=== PATIENT | female | born 1990 | race Caucasian/White ===

== ENCOUNTER 2019-02-01 18:37 | Outpatient (CLI) | payer OTHER ==
[~2019-02-01] VITALS: Ht 160 cm; Wt 92.3 kg
[~2019-02-01 18:37] MED LIST: PRENAT PO
[2019-02-01 18:57] VITALS: Ht 160 cm; Wt 92.3 kg
[2019-02-01 18:58] VITALS: BP 102/65; PULSE 86; RESP 20
--- NOTE | 2019-02-01 20:34 | PN ---
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 , in the morning feels better and in the afternoon symptoms gets worse Hx of PTB at 34w Objective Vital Signs Date Temp Pulse Resp B/P (MAP) Pulse Ox O2 O2 Flow FiO2 Time Delivery Rate 02/01/19 97.7 86 20 102/65 Room Air 18:58 (77) Heart Rate Comments CAT I tracing Contractions: 6-10 Minutes Apart Exam abdomen soft no tenderness Results/Medications Results 24 hrs Laboratory Tests Test 02/01/19 18:45 Urine Color YELLOW Urine Clarity SLIGHTLY CLOUDY A Urine pH 6.0 Urine Specific [place] 1.006 Urine Ketones NEGATIVE Urine Nitrite POSITIVE A Urine Bilirubin NEGATIVE Urine Urobilinogen NEGATIVE Urine Leukocyte Esterase 2+ H Urine Microscopic RBC 0 Urine Microscopic WBC 7 H Urine Squamous Epithelial Cells FEW Urine Amorphous Crystals FEW A Urine Bacteria MODERATE Urine Hemoglobin NEGATIVE Urine Glucose NEGATIVE Urine Total Protein NEGATIVE Imaging Results BPP 8/8 TOVA 19.8 EFW 1861, 54% CVL 3.2cm Disposition: Discharge Assessment/Plan A IUP 31w3d lifament pain P discharge home with advise of cutting down the working hours RTH with routine labor instructions RUPINDER OMALLEY MD Feb 01, 2019 20:34
--- NOTE | 2019-02-02 06:04 | TRIAGE ---
OB Triage Datetime Report Generated by CPN: 02/02/2019 06:03 Datetime: 02/01/2019 20:29 Stage of : OB Triage Quality: Mild Pattern: Normal: <= 5 Contractions in 10 Minutes Resting Tone [place]: Relaxed Heart Rate FHR Baseline Rate: 135 FHR Baseline Changes: No Baseline Change Variability: Moderate 6-25 bpm Accelerations: 15X15 Decelerations: None Category: Category I Datetime: 02/01/2019 19:43 Labor Evaluation Monitor Mode: External Quality: Mild Resting Tone [place]: Relaxed Heart Rate FHR Baseline Rate: 140 Monitor Mode: External US Datetime: 02/01/2019 19:10 Stage of : OB Triage Labor Evaluation Monitor Mode: External Quality: Mild Pattern: Normal: <= 5 Contractions in 10 Minutes Resting Tone [place]: Relaxed Heart Rate FHR Baseline Rate: 130 Monitor Mode: External US FHR Baseline Changes: No Baseline Change Variability: Moderate 6-25 bpm Accelerations: 15X15 Decelerations: None Category: Category I Pain Assessment Pain Scale: 3 Pain Presence: Intermittent Datetime: 02/01/2019 18:45 Assessment Type: Triage Maternal Assessment Level of Consciousness: Fully Conscious DTR's/Clonus: DTRs 2+; No Clonus Headache: Denies Blurred Vision: No Respiratory Effort: Unlabored; Regular Rhythm; Equal Expansion Breath Sounds, Left: Clear and Equal Breath Sounds, Right: Clear and Equal Nausea/Vomiting: Denies RUQ Epigastric Pain: Denies Lower Extremities Edema: None Degree: None Upper Extremities Edema: None Degree: None Facial Edema: None Fall Risk Assessment History of Falling: (0) No Secondary Diagnosis: (0) No Ambulatory Aid: (0) Bedrest/Nurse Assist IV Therapy: (0) No Gait: (0) Normal/Bedrest/Immobile Mental Status: (0) Oriented to Own Ability Fall Score: 0 Fall Risk Score Definition: No Risk: No action required Datetime: 02/01/2019 18:32 Time of Arrival: 02/01/2019 18:32 EGA: 31.3 Arrived By: Ambulatory Arrived From: Home Chief Complaint: L1 Movement: Present Rupture of Membranes: Denies Vaginal Discharge: Present Recent Sexual Intercouse: Denies Abdominal Trauma: Not Applicable Patient Complaints: Back Pain Additional Patient Complaints: Hx PTL w/ 1 stillbirth and 1 34 wk ptd Time Provider Notified: 02/01/2019 19:10 Provider Notified: Dr Robles Initial Plan: UA, CBC, BPP,CVL
== END 2019-02-01 20:43 | disposition home or self-care (01) ==
LOC: OBT 18:37 → L-D 18:38 → OBT 20:43
PROVIDERS: ATTEND Obstetrics & Gynecology
DX: O26.893 Other specified pregnancy related conditions, third trimester (principal); Z3A.31 31 weeks gestation of pregnancy; R10.2 Pelvic and perineal pain
CPT/HCPCS: 76815; 76817; 76818; 81001; 87086; Z7610; G0463

== ENCOUNTER 2019-02-10 15:18 | Inpatient (IN) | payer OTHER ==
[~2019-02-10] VITALS: Ht 160 cm; Wt 91.8 kg
--- NOTE | 2019-02-10 16:55 | HP ---
Date/Time of Note Date/Time of Note DATE: 02/10/19 TIME: 16:50 OB - History Hx of Present Free Text/Dictation Patient is a 28-year-old 3 para 2 at 33 weeks of gestation with estimated date of delivery March 31, 2019 Patient presents with chief complaint of flulike symptoms. She has a fever of 100.3 Patient reports movement, denies any vaginal bleeding or leaking fluid Patient obstetrical history significant for history of delivery at 34 weeks of gestation and history of IUFD at 28 weeks of gestation with severe preeclampsia Estimated Due Date: March 31, 2019 : 3 Para: 2 Care: Good Care Obstetrical Complications: None Medical Complications: Other (Flu-like symptoms) Past Family/Social History * Past Medical, Surgical, Family and Obstetric Histories reviewed from chart. OB Admission Exam Physical Exam HEENT: WNL Heart: Rhythm Normal Lungs: Clear, Equal Abdomen: WNL Extremities: Normal Reflexes: Normal Membranes: Intact Heart Rate: 140's Accelerations: Accelerations Present Decelerations: No Decelerations Varibility: Moderate Contractions on Admission: 6-10 Minutes Apart Intensity: Mild Last 72 hours Lab Results Urine Results - 72 Hrs Test 02/10/19 16:50 Urine Color RIGOBERTO (YELLOW) Urine Clarity SLIGHTLY CLOUDY (CLEAR) Urine pH 7.0 (5.0-9.0) Urine Specific [place] 1.017 (1.003-1.030) Urine Ketones 1+ mg/dL (NEGATIVE) H Urine Nitrite NEGATIVE mg/dL (NEGATIVE) Urine Bilirubin NEGATIVE mg/dL (NEGATIVE) Urine Urobilinogen 2+ mg/dL (NEGATIVE) H Urine Leukocyte Esterase 1+ [place]/ul (NEGATIVE) H Urine Microscopic RBC 19 /HPF (0-5) H Urine Microscopic WBC 10 /HPF (0-5) H Urine Squamous Epithelial Cells MODERATE /HPF (FEW) Urine Bacteria FEW /HPF (NONE SEEN) A Urine Mucus FEW /HPF (NONE SEEN) A Urine Hemoglobin 1+ mg/dL (NEGATIVE) H Urine Glucose NEGATIVE mg/dL (NEGATIVE) Urine Total Protein 1+ mg/dl (NEGATIVE) H Hematology - 72 Hrs Test 02/10/19 16:50 Hematocrit 32.4 % (37.0-47.0) L Hemoglobin 10.5 g/dl (12.0-16.0) L Mean Corpuscular Hemoglobin 28.8 pg (29.0-33.0) L Mean Corpuscular Hemoglobin Concent 32.4 g/dl (32.0-37.0) Mean Corpuscular Volume 88.8 fl (82.0-101.0) Mean Platelet Volume 11.2 fl (7.4-10.4) H Platelet Count 180 10^3/UL (140-415) Red Blood Count 3.65 10^6/ul (4.20-5.40) L Red Cell Distribution Width 13.7 % (11.5-14.5) White Blood Count 8.7 10^3/ul (4.8-10.8) # Chemistry Test 02/10/19 16:50 Sodium Level 135 mmol/L (135-144) Potassium Level 4.2 mmol/L (3.5-5.1) Chloride Level 106 mmol/L (97-110) Carbon Dioxide Level 22 mmol/L (21-31) Anion Gap 7 (5-13) Blood Urea Nitrogen 4 mg/dl (7-20) L Creatinine 0.56 mg/dl (0.44-1.00) Est Glomerular Filtrat Rate mL/min > 60 mL/min (>60) Glucose Level 89 mg/dl (70-220) Calcium Level 8.5 mg/dl (8.4-10.2) Total Bilirubin 1.2 mg/dl (0.2-1.3) Direct Bilirubin 0.00 mg/dl (0.00-0.20) Indirect Bilirubin 1.2 mg/dl (0-1.1) H Aspartate Amino Transf (AST/SGOT) 12 IU/L (15-46) L Alanine Aminotransferase (ALT/SGPT) 12 IU/L (13-69) L Alkaline Phosphatase 71 IU/L (42-121) Total Protein 6.2 g/dl (6.1-8.1) Albumin 3.1 g/dl (3.3-4.9) L Globulin 3.10 g/dl (1.3-3.2) Albumin/Globulin Ratio 1.00 PROCEDURE: Ultrasound Biophysical profile with amniotic fluid index with transvaginal CLINICAL INDICATION: Flu-like symptoms TECHNIQUE: Color and mayo-scale ultrasound images of an intrauterine gestation were obtained. COMPARISON: US PELVIS 02/01/2019 FINDINGS: A single live intrauterine gestation is identified in cephalic position with an estimated heart rate of 154 beats per minute. The placenta is located anteriorly. There is no evidence of placental abruption. TOVA is 17.75 cm. The length of the cervix equals 3.16 cm on transvaginal ultrasound. movement 2/2. tone 2/2. breathing movement 2/2. Qualitative AFV 2/2 Total biophysical profile 06/21 IMPRESSION: 06/21 biophysical profile. TOVA is 17.75 cm. RPTAT: HJES .Woody Oropeza MD, MD Date Time Electronically viewed and signed by .Woody Oropeza MD, MD on 02/10/2019 17:58 .S/ CC: IMAN GRAF MD [id number] OB Assessment/Plan Reason for admission: other (Flulike symptoms) Other plan: Admit to antepartum IV fluids, labs, urine culture, flu swabs Tamiflu 75 mg p.o. twice daily for 5 days IV ABX Betamethasone for lung maturity Perinatology consultation IMAN GRAF MD Feb 10, 2019 16:55
[2019-02-10] MEDS: LACTATED RINGER'S 1,000 ML IV SCH ×2 (16:56→20:19)
[2019-02-10] MEDS: ACETAMINOPHEN 325 MG TAB PO PRN ×2 (16:59→22:18)
--- NOTE | 2019-02-10 17:43 | TRIAGE ---
OB Triage Datetime Report Generated by CPN: 02/10/2019 17:43 Datetime: 02/10/2019 15:41 Time of Arrival: 02/10/2019 14:13 EGA: 33.0 Arrived By: Ambulatory Arrived From: Home Chief Complaint: flu like symptoms Movement: Present Rupture of Membranes: Denies Vaginal Bleeding: None Vaginal Discharge: Denies Recent Sexual Intercouse: Denies Abdominal Trauma: Not Applicable Patient Complaints: Other Provider Notified: dr rahman Initial Plan: efm,call dr rahman Datetime: 02/10/2019 15:40 Maternal Assessment Level of Consciousness: Fully Conscious DTR's/Clonus: DTRs 2+; No Clonus Headache: Denies Blurred Vision: No Respiratory Effort: Unlabored; Regular Rhythm; Equal Expansion Breath Sounds, Left: Clear and Equal Breath Sounds, Right: Clear and Equal Nausea/Vomiting: Denies RUQ Epigastric Pain: Denies Facial Edema: None Temperature Route: Axillary Fall Risk Assessment History of Falling: (0) No Secondary Diagnosis: (0) No Ambulatory Aid: (0) Bedrest/Nurse Assist IV Therapy: (0) No Gait: (0) Normal/Bedrest/Immobile Mental Status: (0) Oriented to Own Ability Fall Score: 0 Fall Risk Score Definition: No Risk: No action required Datetime: 02/10/2019 15:38 Maternal Assessment Level of Consciousness: Fully Conscious DTR's/Clonus: DTRs 2+ Headache: Denies Blurred Vision: No Nausea/Vomiting: Denies RUQ Epigastric Pain: Denies Facial Edema: None Labor Evaluation Frequency: x1 Monitor Mode: External Quality: Mild Pattern: Normal: <= 5 Contractions in 10 Minutes Resting Tone [place]: Relaxed Heart Rate FHR Baseline Rate: 155 Monitor Mode: External US FHR Baseline Changes: No Baseline Change Variability: Moderate 6-25 bpm Accelerations: 15X15 Decelerations: None Category: Category I Pain Assessment Pain Scale: 6 Pain Presence: Constant Pain Type: Ache Pain Goal: 3 Vaginal Exam Membrane Status: Intact Datetime: 02/01/2019 18:45 Fall Score: 0 Fall Risk Score Definition: No Risk: No action required Datetime: 02/01/2019 18:32 EGA: 31.5
[2019-02-10 19:09] VITALS: Ht 160 cm; Wt 91.8 kg
[2019-02-10] MEDS ORDERED: AL HYDROX/MG HYDROX/SIMETH 30 ML CUP PO PRN (20:00)
[2019-02-10] MEDS ORDERED: OSELTAMIVIR 75 MG CAP PO SCH (21:00)
[2019-02-10] MEDS ORDERED: CEFAZOLIN 2 GM/50 ML (PMX) 50 ML IVPB SCH (22:00)
[2019-02-10] MEDS: CEFAZOLIN 2 GM/50 ML (PMX) 50 ML IVPB SCH (22:19)
[2019-02-10] MEDS: BETAMET NA PHOS/AC(6 MG/ML) 2 ML INJ SYG IM SCH (23:19)
[2019-02-11] MEDS: CEFAZOLIN 2 GM/50 ML (PMX) 50 ML IVPB SCH ×3 (05:43→22:39)
[2019-02-11] MEDS: ACETAMINOPHEN 325 MG TAB PO PRN ×3 (06:23→19:36)
[2019-02-11] MEDS: LACTATED RINGER'S 1,000 ML IV SCH ×3 (06:44→22:39)
[2019-02-11] MEDS ORDERED: PRENATAL VITAMIN PO SCH (09:00)
[2019-02-11] MEDS ORDERED: DOCUSATE SODIUM 100 MG CAP PO SCH (09:00)
--- NOTE | 2019-02-11 11:12 | QN ---
Documentation Comment HD #1 with an IUP at 33w 1d. H/o stillbirth at 28 weeks and PTD at 34 weeks . Pt reports a h/o frequent UTI's. Has had pyelo before 2x always when . Pt feeling a little better but still has a BENAVIDEZ and a backache. Pt on Ancef. Urine cx pending. Flu swabs negative. No CVAT NST: No UC's seen. Baby is reactive and w/o decels. P: Continue care. Hopefully will plan d/c for tomorrow when have the urine cx results and pt is feeling much better. As not sure of the etiology of her illness and as she has a less than stellar OB history will err on the side of caution and plan d/c when she is feeling much better, not just a little bit. YAMILKA MARIE MD Feb 11, 2019 11:12
[2019-02-11] MEDS: BETAMET NA PHOS/AC(6 MG/ML) 2 ML INJ SYG IM SCH (22:40)
[2019-02-12] MEDS: CEFAZOLIN 2 GM/50 ML (PMX) 50 ML IVPB SCH (06:37)
[2019-02-12] MEDS: LACTATED RINGER'S 1,000 ML IV SCH (06:37)
--- NOTE | 2019-02-12 08:24 | DS ---
Date/Time of Note Date/Time of Note DATE: 02/12/19 TIME: 08:23 Discharge Summary Admission/Discharge Info Admit Date/Time Feb 10, 2019 at 16:00 Discharge Date/Time Discharge Diagnosis UTI Patient Condition: Stable Hospital Course UNREMARKABLE Home Meds Reported Medications Multivit/Min/Fol Ac/Iron/Pren* ( S*) 1 Tab Tab, 1 TAB PO DAILY, TAB 10/22/15 Primary Care Provider Care Physician No Primary MARTITA العراقي MD Feb 12, 2019 08:24
== END 2019-02-12 11:50 | disposition home or self-care (01) | DRG 833 ==
LOC: OBT 15:18 → L-D 15:18 → OBT 16:00 → L-D 16:00 → UNDOADMIN 16:22 → L-D 16:22 → PP1 23:46
PROVIDERS: ADMIT Obstetrics & Gynecology; ATTEND Obstetrics & Gynecology
DX: O26.93 Pregnancy related conditions, unspecified, third trimester (principal); Z3A.33 33 weeks gestation of pregnancy; R50.9 Fever, unspecified; R51 Headache; M54.9 Dorsalgia, unspecified
CPT/HCPCS: 76817; 76818; 80053; 81001; 85025; 87086; 87400; G0463; J0690; J0702; J7120

== ENCOUNTER 2019-02-27 16:51 | Outpatient (CLI) | payer OTHER ==
[~2019-02-27] VITALS: Ht 160 cm; Wt 91.2 kg
[2019-02-27 17:45] VITALS: Ht 160 cm; Wt 91.2 kg
[2019-02-27 17:46] VITALS: BP 114/60; PULSE 109
[2019-02-27] MEDS ORDERED: CEPH500C PO (17:47)
[2019-02-27] MEDS ORDERED: TERBUTALINE 1 MG/ML INJ SC ONE (19:00)
[2019-02-27] MEDS ORDERED: LACTATED RINGER'S 1,000 ML IV SCH (19:00)
--- NOTE | 2019-02-27 23:04 | PN ---
Triage Information Date/Time Reason for visit: Uterine contractions Weeks of Gestation 35 weeks /Para Diabetes: none Hypertention: none Objective Vital Signs Date Temp Pulse Resp B/P (MAP) Pulse Ox O2 O2 Flow FiO2 Time Delivery Rate 02/27/19 98.3 109 114/60 17:46 (78) Heart Rate: 120's Heart Rate Comments Reactive Exam Cervix closed Results/Medications Results 24 hrs Laboratory Tests Test 02/27/19 17:05 02/27/19 21:40 Urine Color RIGOBERTO Urine Clarity CLOUDY A Urine pH 5.0 Urine Specific [place] 1.027 Urine Ketones TRACE A Urine Nitrite NEGATIVE Urine Bilirubin NEGATIVE Urine Urobilinogen 2+ H Urine Leukocyte Esterase NEGATIVE Urine Microscopic RBC 5 Urine Microscopic WBC 19 H Urine Squamous Epithelial Cells MODERATE Urine Bacteria FEW A Urine Mucus MANY A Urine Hemoglobin NEGATIVE Urine Glucose NEGATIVE Urine Total Protein NEGATIVE Membranes Rupture NEGATIVE Medications Current Medications Lactated Ringer's 1,000 ml @ 125 mls/hr Q8H IV Last administered on 02/27/19at 19:14; Admin Dose 125 MLS/HR; Start 02/27/19 at 19:00 Disposition: Discharge Assessment/Plan Follow up in clinic this week ELI BARNES MD Feb 27, 2019 23:04
--- NOTE | 2019-02-27 23:21 | TRIAGE ---
OB Triage Datetime Report Generated by CPN: 02/27/2019 23:21 Datetime: 02/27/2019 21:45 Vaginal Exam Dilatation (cms): 0.5 Effacement (%): 20 Station: -4 Exam By: [email or web address] Vaginal Bleeding: None Cervix, Consistency: Moderate Cervix, Position: Midposition Presentation 'A': Unable to Assess Lie 'A': Unable to Assess Datetime: 02/27/2019 20:30 Heart Rate FHR Baseline Rate: 150 FHR Baseline Changes: No Baseline Change Variability: Moderate 6-25 bpm Datetime: 02/27/2019 20:25 Pain Assessment Pain Scale: 4 Pain Assessment Comments: PATIENT STATES SHE NO LONGER FEELS ABD CRAMPING Datetime: 02/27/2019 20:00 Monitor Mode: External Pattern: Normal: <= 5 Contractions in 10 Minutes Contraction Comments: HIGH FREQUENCY, LOW AMPLITUDE Heart Rate FHR Baseline Rate: 135 Monitor Mode: External US FHR Baseline Changes: No Baseline Change Variability: Moderate 6-25 bpm Accelerations: 15X15 Datetime: 02/27/2019 18:36 Labor Evaluation Frequency: 8-10 Monitor Mode: External Duration (sec)2399: 30-60 Quality: Mild Pattern: Normal: <= 5 Contractions in 10 Minutes Resting Tone [place]: Relaxed Heart Rate FHR Baseline Rate: 125 Monitor Mode: External US Variability: Moderate 6-25 bpm Accelerations: 10X10 Decelerations: None Category: Category I Pain Assessment Pain Scale: 6 Pain Presence: Intermittent Pain Type: Cramping Pain Location: Abdomen Pain Goal: 3 Pain Relief Measures: Comfort Measures Datetime: 02/27/2019 18:32 Stage of : OB Triage Datetime: 02/27/2019 17:41 Stage of : OB Triage Assessment Type: Triage Maternal Assessment Level of Consciousness: Fully Conscious DTR's/Clonus: DTRs 2+; No Clonus Headache: Denies Blurred Vision: No Respiratory Effort: Unlabored; Regular Rhythm; Equal Expansion Breath Sounds, Left: Clear and Equal Breath Sounds, Right: Clear and Equal Nausea/Vomiting: Denies RUQ Epigastric Pain: Denies Facial Edema: None Temperature Route: Axillary Fall Risk Assessment History of Falling: (0) No Secondary Diagnosis: (0) No Ambulatory Aid: (0) Bedrest/Nurse Assist IV Therapy: (0) No Gait: (0) Normal/Bedrest/Immobile Mental Status: (0) Oriented to Own Ability Fall Score: 0 Fall Risk Score Definition: No Risk: No action required Labor Evaluation Frequency: X2 Monitor Mode: External Duration (sec)2399: 40 Quality: Mild Pattern: Normal: <= 5 Contractions in 10 Minutes Resting Tone [place]: Relaxed Heart Rate FHR Baseline Rate: 135 Monitor Mode: External US Variability: Moderate 6-25 bpm Accelerations: 10X10 Decelerations: None Category: Category I Pain Assessment Pain Scale: 6 Pain Presence: Intermittent Pain Type: Cramping Pain Location: Perineum Pain Goal: 3 Pain Relief Measures: Comfort Measures Datetime: 02/27/2019 17:40 Time of Arrival: 02/27/2019 16:44 EGA: 35.3 Arrived By: Ambulatory Arrived From: Home Chief Complaint: C/O CRAMPING, DENIES BLEEDING, OR LEAKING Movement: Present Contractions: Occasional Rupture of Membranes: Denies Vaginal Bleeding: None Vaginal Discharge: Denies Recent Sexual Intercouse: Denies Abdominal Trauma: Not Applicable Patient Complaints: Cramping Time Provider Notified: 02/27/2019 18:32 Provider Notified: MALCOM Initial Plan: MONITOR, BPP Datetime: 02/12/2019 08:20 Stage of : Antepartum Datetime: 02/12/2019 08:19 Heart Rate FHR Baseline Rate: 125 Monitor Mode: External US Variability: Moderate 6-25 bpm Accelerations: 15X15 Decelerations: None Datetime: 02/12/2019 07:12 Assessment Type: Ongoing Assessment Maternal Assessment Level of Consciousness: Fully Conscious Maternal Assessment Level of Consciousness: Fully Conscious DTR's/Clonus: DTRs 2+; No Clonus Headache: Denies Headache: Denies Blurred Vision: No Blurred Vision: No Respiratory Effort: Unlabored; Regular Rhythm; Equal Expansion Breath Sounds, Left: Clear and Equal Breath Sounds, Right: Clear and Equal Nausea/Vomiting: Denies Nausea/Vomiting: Denies RUQ Epigastric Pain: Denies RUQ Epigastric Pain: Denies Lower Extremities Edema: None Degree: None Upper Extremities Edema: None Degree: None Facial Edema: None Fall Risk Assessment History of Falling: (0) No Secondary Diagnosis: (0) No Ambulatory Aid: (0) Bedrest/Nurse Assist IV Therapy: (20) Yes Gait: (0) Normal/Bedrest/Immobile Mental Status: (0) Oriented to Own Ability Fall Score: 20 Fall Risk Score Definition: No Risk: No action required Pain Presence: Chronic Pain Type: Dull Pain Location: Head Pain Relief Measures: Comfort Measures Pain Assessment Comments: pt. states she has a constant h.a. pt. does not appear in distress at thi s time. ice pack given. pt. denies need for pain meds. at this time Datetime: 02/12/2019 07:11 Monitor Mode: External Resting Tone [place]: Relaxed Datetime: 02/12/2019 06:39 Temperature Route: Oral Pain Presence: None/Denies Datetime: 02/12/2019 06:10 Labor Evaluation Frequency: 0 Monitor Mode: External Duration (sec)2399: denies Resting Tone [place]: Relaxed Heart Rate FHR Baseline Rate: 130 Monitor Mode: External US Variability: Moderate 6-25 bpm Accelerations: 15X15 Decelerations: Variable Category: Category II Pain Presence: None/Denies Datetime: 02/12/2019 05:10 Labor Evaluation Frequency: 0 Monitor Mode: External Duration (sec)2399: denies Resting Tone [place]: Relaxed Heart Rate FHR Baseline Rate: 130 Monitor Mode: External US Variability: Moderate 6-25 bpm Accelerations: 15X15 Decelerations: Variable Category: Category II Comments: some periods of minimal variability noted. Pain Presence: None/Denies Datetime: 02/12/2019 04:10 Labor Evaluation Frequency: 0 Monitor Mode: External Resting Tone [place]: Relaxed Heart Rate FHR Baseline Rate: 125 Monitor Mode: External US Variability: Moderate 6-25 bpm Accelerations: 15X15 Decelerations: None Category: Category I Pain Presence: None/Denies Datetime: 02/12/2019 04:01 Comments: maternal heart rate was detected. Datetime: 02/12/2019 03:10 Labor Evaluation Frequency: 0 Monitor Mode: External Resting Tone [place]: Relaxed Heart Rate FHR Baseline Rate: 125 Monitor Mode: External US Variability: Moderate 6-25 bpm Accelerations: 15X15 Decelerations: None Category: Category I Datetime: 02/12/2019 02:16 Comments: MATERNAL HEART RATE DETECTED FOUNDED PT TURNED ON HER LEFT SIDE. Datetime: 02/12/2019 02:10 Labor Evaluation Frequency: 0 Monitor Mode: External Duration (sec)2399: DENIES Resting Tone [place]: Relaxed Heart Rate FHR Baseline Rate: 135 Monitor Mode: External US Variability: Moderate 6-25 bpm Accelerations: 15X15 Decelerations: None Category: Category I Pain Presence: None/Denies Datetime: 02/12/2019 01:13 Comments: MATERNAL HEART RATE DETECTED. Datetime: 02/12/2019 01:10 Labor Evaluation Frequency: 0 Monitor Mode: External Duration (sec)2399: DENIES Resting Tone [place]: Relaxed Heart Rate FHR Baseline Rate: 130 Monitor Mode: External US Variability: Moderate 6-25 bpm Accelerations: 15X15 Decelerations: None Category: Category I Pain Presence: None/Denies Datetime: 02/12/2019 00:10 Labor Evaluation Frequency: 0 Monitor Mode: External Resting Tone [place]: Relaxed Heart Rate FHR Baseline Rate: 130 Monitor Mode: External US Variability: Moderate 6-25 bpm Accelerations: 15X15 Decelerations: Variable Category: Category II Pain Presence: None/Denies Datetime: 02/11/2019 23:08 Labor Evaluation Frequency: 0 Monitor Mode: External Duration (sec)2399: denies Resting Tone [place]: Relaxed Heart Rate FHR Baseline Rate: 135 Monitor Mode: External US Variability: Moderate 6-25 bpm Accelerations: 15X15 Decelerations: None Category: Category I Datetime: 02/11/2019 22:00 Labor Evaluation Frequency: 0 Monitor Mode: External Resting Tone [place]: Relaxed Heart Rate FHR Baseline Rate: 145 Monitor Mode: External US Variability: Moderate 6-25 bpm Accelerations: 15X15 Decelerations: None Category: Category I Pain Presence: None/Denies Datetime: 02/11/2019 21:00 Labor Evaluation Frequency: 0 Monitor Mode: External Duration (sec)2399: DENIES Resting Tone [place]: Relaxed Heart Rate FHR Baseline Rate: 145 Comments: LOSS OF CONTACT,PT MOVING SIDE TO SIDE IN BED. Datetime: 02/11/2019 20:45 Pain Assessment Comments: PT STATED TYLENOL HELPED HER WITH BENAVIDEZ,HER BPAIN IS DOWN 2/10 ON A SCALE. WILL KEEP MONITORING. Datetime: 02/11/2019 20:00 Labor Evaluation Frequency: 0 Monitor Mode: External Duration (sec)2399: DENIES Resting Tone [place]: Relaxed Heart Rate FHR Baseline Rate: 135 Monitor Mode: External US Variability: Moderate 6-25 bpm Accelerations: 15X15 Decelerations: None Category: Category I Comments: LOSS OF CONTACT AT TIMES DUE TO MATERNAL MOVEMENTS. Datetime: 02/11/2019 19:25 Stage of : Antepartum Assessment Type: Ongoing Assessment Maternal Assessment Level of Consciousness: Fully Conscious DTR's/Clonus: DTRs 2+; No Clonus Headache: Denies Blurred Vision: No Respiratory Effort: Unlabored; Regular Rhythm; Equal Expansion Breath Sounds, Left: Clear and Equal Breath Sounds, Right: Clear and Equal Nausea/Vomiting: Denies RUQ Epigastric Pain: Denies Lower Extremities Edema: None Degree: None Upper Extremities Edema: None Degree: None Facial Edema: None Temperature Route: Oral Fall Risk Assessment History of Falling: (0) No Secondary Diagnosis: (0) No Ambulatory Aid: (0) Bedrest/Nurse Assist IV Therapy: (0) No Gait: (0) Normal/Bedrest/Immobile Mental Status: (0) Oriented to Own Ability Fall Score: 0 Fall Risk Score Definition: No Risk: No action required Monitor Mode: External Pain Presence: Intermittent Pain Type: Dull; Ache Pain Location: Back; Head Pain Relief Measures: Pain Medication Given; Comfort Measures (Annotations: TYLENOL 650 MG PO GIVEN.) Datetime: 02/11/2019 18:40 Headache: Denies Pain Presence: None/Denies Datetime: 02/11/2019 18:22 Stage of : Antepartum Maternal Assessment Level of Consciousness: Fully Conscious Blurred Vision: No Nausea/Vomiting: Denies RUQ Epigastric Pain: Denies Temperature Route: Oral Datetime: 02/11/2019 18:00 Stage of : Antepartum Maternal Assessment Level of Consciousness: Fully Conscious Headache: Denies Nausea/Vomiting: Denies RUQ Epigastric Pain: Denies Labor Evaluation Frequency: 0/hr Monitor Mode: External Heart Rate FHR Baseline Rate: 130 Monitor Mode: External US Variability: Moderate 6-25 bpm Accelerations: 15X15 Decelerations: None Pain Presence: None/Denies Vaginal Bleeding: None Datetime: 02/11/2019 17:56 Maternal Assessment Level of Consciousness: Fully Conscious Headache: Denies Blurred Vision: No Respiratory Effort: Unlabored Nausea/Vomiting: Denies RUQ Epigastric Pain: Denies Facial Edema: None Pain Presence: None/Denies Datetime: 02/11/2019 17:02 Stage of : Antepartum Maternal Assessment Level of Consciousness: Fully Conscious Headache: Denies Nausea/Vomiting: Denies RUQ Epigastric Pain: Denies Labor Evaluation Frequency: 0/hr Monitor Mode: External Heart Rate FHR Baseline Rate: 130 Monitor Mode: External US Variability: Moderate 6-25 bpm Accelerations: 15X15 Decelerations: None Pain Presence: None/Denies Vaginal Bleeding: None Datetime: 02/11/2019 16:39 Resting Tone [place]: Relaxed Monitor Mode: External US Pain Presence: None/Denies Datetime: 02/11/2019 16:00 Stage of : Antepartum Maternal Assessment Level of Consciousness: Fully Conscious Headache: Denies Nausea/Vomiting: Denies RUQ Epigastric Pain: Denies Labor Evaluation Frequency: 0/hr Monitor Mode: External Heart Rate FHR Baseline Rate: 125 Monitor Mode: External US Variability: Moderate 6-25 bpm Accelerations: 15X15 Decelerations: None Pain Presence: None/Denies Vaginal Bleeding: None Datetime: 02/11/2019 15:04 Stage of : Antepartum Maternal Assessment Level of Consciousness: Fully Conscious Headache: Denies Nausea/Vomiting: Denies RUQ Epigastric Pain: Denies Labor Evaluation Frequency: 0/hr Monitor Mode: External Heart Rate FHR Baseline Rate: 130 Monitor Mode: External US Variability: Moderate 6-25 bpm Decelerations: None Pain Presence: None/Denies Vaginal Bleeding: None Datetime: 02/11/2019 14:05 Stage of : Antepartum Maternal Assessment Level of Consciousness: Fully Conscious Headache: Denies Blurred Vision: No Respiratory Effort: Unlabored Nausea/Vomiting: Denies RUQ Epigastric Pain: Denies Labor Evaluation Frequency: 0/hr Monitor Mode: External Heart Rate FHR Baseline Rate: 130 Monitor Mode: External US Variability: Moderate 6-25 bpm Accelerations: 10X10 Decelerations: None Pain Presence: None/Denies Vaginal Bleeding: None Datetime: 02/11/2019 13:05 Stage of : Antepartum Maternal Assessment Level of Consciousness: Fully Conscious Headache: Generalized Blurred Vision: No Respiratory Effort: Unlabored Nausea/Vomiting: Denies RUQ Epigastric Pain: Denies Labor Evaluation Frequency: 0/hr Monitor Mode: External Heart Rate FHR Baseline Rate: 120 Monitor Mode: External US Variability: Moderate 6-25 bpm Accelerations: 15X15 Pain Presence: None/Denies Vaginal Bleeding: None Datetime: 02/11/2019 11:51 Heart Rate FHR Baseline Rate: 130 Monitor Mode: External US Variability: Moderate 6-25 bpm Accelerations: 10X10 Decelerations: Variable Datetime: 02/11/2019 11:48 Stage of : Antepartum Maternal Assessment Level of Consciousness: Fully Conscious Headache: Generalized Blurred Vision: No Respiratory Effort: Unlabored Nausea/Vomiting: Denies RUQ Epigastric Pain: Denies Temperature Route: Oral Comments: rn unsure if actual variable and not u.s. p/u/ maternal h.r. w/ pt. position change inbed Pain Assessment Pain Scale: 4 Pain Presence: Constant Pain Type: Ache Pain Location: Head Pain Relief Measures: Pain Medication Given; Comfort Measures Pain Assessment Comments: tylenol and ice pack given to pt. per her request. Datetime: 02/11/2019 10:14 Stage of : Antepartum Maternal Assessment Level of Consciousness: Fully Conscious Nausea/Vomiting: Denies RUQ Epigastric Pain: Denies Labor Evaluation Frequency: 0/hr Monitor Mode: External Heart Rate FHR Baseline Rate: 120 Monitor Mode: External US Variability: Moderate 6-25 bpm Accelerations: 15X15 Vaginal Bleeding: None Datetime: 02/11/2019 09:54 Heart Rate FHR Baseline Rate: 120 Monitor Mode: External US Variability: Moderate 6-25 bpm Accelerations: 15X15 Decelerations: None Datetime: 02/11/2019 09:52 Respiratory Effort: Unlabored Pain Presence: None/Denies Datetime: 02/11/2019 09:00 Stage of : Antepartum Maternal Assessment Level of Consciousness: Fully Conscious Headache: Generalized Nausea/Vomiting: Denies RUQ Epigastric Pain: Denies Labor Evaluation Frequency: 0/hr Monitor Mode: External Heart Rate FHR Baseline Rate: 120 Monitor Mode: External US Variability: Moderate 6-25 bpm Accelerations: 15X15 Pain Assessment Pain Scale: 3 Pain Presence: Constant Pain Type: Ache Pain Location: Head Pain Relief Measures: Comfort Measures Membrane Status: Intact Vaginal Bleeding: None Datetime: 02/11/2019 08:37 Maternal Assessment Level of Consciousness: Fully Conscious Headache: Generalized Blurred Vision: No Respiratory Effort: Unlabored Nausea/Vomiting: Denies RUQ Epigastric Pain: Denies Pain Presence: Constant Pain Type: Ache Pain Location: Head Pain Relief Measures: Comfort Measures Datetime: 02/11/2019 08:11 Labor Evaluation Frequency: occassional Monitor Mode: External Duration (sec)2399: 40 Quality: Mild Heart Rate FHR Baseline Rate: 120 Monitor Mode: External US Variability: Moderate 6-25 bpm Accelerations: 15X15 Datetime: 02/11/2019 07:32 Labor Evaluation Frequency: 0 Monitor Mode: External Resting Tone [place]: Relaxed Contraction Comments: pt. denies at this time. pt. states S_S of uti have decreased. 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 rn asked if she informed md when in ob triage of this and she states yes. Heart Rate FHR Baseline Rate: 120 Monitor Mode: External US Variability: Moderate 6-25 bpm Accelerations: 15X15 Decelerations: None Datetime: 02/11/2019 07:22 Assessment Type: Ongoing Assessment Maternal Assessment Level of Consciousness: Fully Conscious Maternal Assessment Level of Consciousness: Fully Conscious DTR's/Clonus: DTRs 2+ Headache: Temporal; Generalized Headache: Generalized Blurred Vision: No Blurred Vision: No Respiratory Effort: Unlabored; Regular Rhythm; Equal Expansion Respiratory Effort: Unlabored Breath Sounds, Left: Clear and Equal Breath Sounds, Left: Clear and Equal Breath Sounds, Right: Clear and Equal Breath Sounds, Right: Clear and Equal Nausea/Vomiting: Denies RUQ Epigastric Pain: Denies RUQ Epigastric Pain: Denies Lower Extremities Edema: Bilateral Lower Extremities Degree: 1+ Upper Extremities Edema: None Degree: None Facial Edema: None Fall Risk Assessment History of Falling: (0) No Secondary Diagnosis: (0) No Ambulatory Aid: (0) Bedrest/Nurse Assist IV Therapy: (20) Yes Gait: (0) Normal/Bedrest/Immobile Mental Status: (0) Oriented to Own Ability Fall Score: 20 Fall Risk Score Definition: No Risk: No action required Monitor Mode: External Resting Tone [place]: Relaxed Pain Assessment Pain Scale: 4 Pain Presence: Constant Pain Type: Sharp Pain Location: Head Pain Relief Measures: Comfort Measures Pain Assessment Comments: pt. was given tylenol by p.mRc obrien for h.a. pt. talking w/ rn during ass essment and talking w/out distress at this time. pt. denies S_S of ptl, as pt. has hx. ptd at 34 week s and 28 weeks fd, pt. also denies S_S of preeclampsia Membrane Status: Intact Vaginal Bleeding: None Datetime: 02/11/2019 07:12 Stage of : Antepartum Temperature Route: Oral Datetime: 02/11/2019 07:10 Stage of : Antepartum Datetime: 02/11/2019 07:00 Labor Evaluation Frequency: none Monitor Mode: External Resting Tone [place]: Relaxed Heart Rate FHR Baseline Rate: 120 Monitor Mode: External US FHR Baseline Changes: No Baseline Change Variability: Moderate 6-25 bpm Accelerations: 15X15 Decelerations: None Category: Category I Datetime: 02/11/2019 06:00 Labor Evaluation Frequency: none Monitor Mode: External Resting Tone [place]: Relaxed Heart Rate FHR Baseline Rate: 120 Monitor Mode: External US FHR Baseline Changes: No Baseline Change Variability: Moderate 6-25 bpm Accelerations: 15X15 Decelerations: None Category: Category I Datetime: 02/11/2019 05:00 Labor Evaluation Frequency: none Monitor Mode: External Resting Tone [place]: Relaxed Heart Rate FHR Baseline Rate: 125 Monitor Mode: External US FHR Baseline Changes: No Baseline Change Variability: Moderate 6-25 bpm Accelerations: 15X15 Decelerations: None Category: Category I Datetime: 02/11/2019 04:16 Stage of : Antepartum Temperature Route: Oral Pain Assessment Pain Scale: 2 Pain Presence: Constant Pain Type: Ache Pain Location: Back Pain Goal: 0 Pain Relief Measures: Comfort Measures Datetime: 02/11/2019 04:00 Labor Evaluation Frequency: none Monitor Mode: External Resting Tone [place]: Relaxed Heart Rate FHR Baseline Rate: 125 Monitor Mode: External US FHR Baseline Changes: No Baseline Change Variability: Moderate 6-25 bpm Decelerations: None Category: Category I Datetime: 02/11/2019 03:20 Comments: loss of contact Datetime: 02/11/2019 03:00 Labor Evaluation Frequency: none Monitor Mode: External Resting Tone [place]: Relaxed Heart Rate FHR Baseline Rate: 130 Monitor Mode: External US FHR Baseline Changes: No Baseline Change Variability: Moderate 6-25 bpm Accelerations: 15X15 Decelerations: None Category: Category I Datetime: 02/11/2019 02:00 Labor Evaluation Frequency: none Monitor Mode: External Resting Tone [place]: Relaxed Heart Rate FHR Baseline Rate: 130 Monitor Mode: External US FHR Baseline Changes: No Baseline Change Variability: Moderate 6-25 bpm Accelerations: 15X15 Decelerations: None Category: Category I Pain Presence: None/Denies Pain Assessment Comments: pt resting without aapparent distress. Datetime: 02/11/2019 01:00 Labor Evaluation Frequency: none Monitor Mode: External Resting Tone [place]: Relaxed Heart Rate FHR Baseline Rate: 135 Monitor Mode: External US FHR Baseline Changes: No Baseline Change Variability: Moderate 6-25 bpm Accelerations: 10X10 Decelerations: None Category: Category I Datetime: 02/11/2019 00:00 Labor Evaluation Frequency: none Monitor Mode: External Resting Tone [place]: Relaxed Heart Rate FHR Baseline Rate: 140 Monitor Mode: External US FHR Baseline Changes: No Baseline Change Variability: Moderate 6-25 bpm Decelerations: None Category: Category I Pain Assessment Pain Scale: 7 Pain Presence: Constant Pain Type: Pressure Pain Location: Back Pain Goal: 0 Pain Assessment Comments: pt c/o lower back pain at 7 out of 10. Advised to drink lots of water. Datetime: 02/10/2019 23:48 Stage of : Antepartum Temperature Route: Oral Pain Assessment Pain Scale: 7 Pain Presence: Constant Pain Type: Ache Pain Location: Back Pain Goal: 7 Pain Relief Measures: Comfort Measures Datetime: 02/10/2019 23:22 Stage of : Antepartum Labor Evaluation Frequency: X1 Monitor Mode: External Duration (sec)2399: 80 Quality: Mild Pattern: Normal: <= 5 Contractions in 10 Minutes Resting Tone [place]: Relaxed Heart Rate FHR Baseline Rate: 145 Monitor Mode: External US Variability: Moderate 6-25 bpm Accelerations: 15X15 Decelerations: None Category: Category I Datetime: 02/10/2019 23:15 Comments: loss contact d/t maternal's activity in bed Datetime: 02/10/2019 22:15 Monitor Mode: External US Datetime: 02/10/2019 22:14 Comments: loss contact d/t maternal's position in bed. EFM reverts to maternal heart rate. Datetime: 02/10/2019 22:05 Monitor Mode: External US Datetime: 02/10/2019 22:04 Monitor Mode: External Contraction Comments: APPLIED Monitor Mode: External US Comments: APPLIED Datetime: 02/10/2019 21:00 Stage of : Antepartum Labor Evaluation Frequency: x0 Monitor Mode: External Duration (sec)2399: x0 Pattern: Normal: <= 5 Contractions in 10 Minutes Resting Tone [place]: Relaxed Heart Rate FHR Baseline Rate: 145 Monitor Mode: External US Variability: Moderate 6-25 bpm Accelerations: 15X15 Decelerations: None Category: Category I Datetime: 02/10/2019 20:00 Stage of : Antepartum Labor Evaluation Frequency: X0 Monitor Mode: External Duration (sec)2399: X0 Pattern: Normal: <= 5 Contractions in 10 Minutes Resting Tone [place]: Relaxed Contraction Comments: MILD IRRITABILITY NOTED Heart Rate FHR Baseline Rate: 145 Monitor Mode: External US Variability: Moderate 6-25 bpm Accelerations: 15X15 Decelerations: None Category: Category I Datetime: 02/10/2019 19:57 Monitor Mode: External US Datetime: 02/10/2019 19:30 Stage of : Antepartum Assessment Type: Ongoing Assessment Maternal Assessment Level of Consciousness: Fully Conscious Headache: Temporal; Generalized Blurred Vision: No Respiratory Effort: Unlabored; Regular Rhythm; Equal Expansion Breath Sounds, Left: Clear and Equal Breath Sounds, Right: Clear and Equal Nausea/Vomiting: Denies RUQ Epigastric Pain: Denies Lower Extremities Edema: Bilateral Lower Extremities Degree: 1+ Upper Extremities Edema: None Degree: None Facial Edema: None Temperature Route: Oral Fall Risk Assessment History of Falling: (0) No Secondary Diagnosis: (0) No Ambulatory Aid: (0) Bedrest/Nurse Assist IV Therapy: (20) Yes Gait: (0) Normal/Bedrest/Immobile Mental Status: (0) Oriented to Own Ability Fall Score: 20 Fall Risk Score Definition: No Risk: No action required Pain Assessment Pain Scale: 4 Pain Presence: Constant Pain Type: Dull; Ache Pain Location: Back; Head Pain Relief Measures: Comfort Measures Pain Assessment Comments: Pt encouraged to increase water intake. Datetime: 02/10/2019 19:00 Labor Evaluation Frequency: occ Monitor Mode: External Duration (sec)2399: 40-50 Quality: Mild Pattern: Normal: <= 5 Contractions in 10 Minutes Resting Tone [place]: Relaxed Heart Rate FHR Baseline Rate: 140 Monitor Mode: External US Variability: Moderate 6-25 bpm Accelerations: 15X15 Decelerations: Variable Category: Category II Comments: appropriate for gestational age Datetime: 02/10/2019 18:34 Stage of : Antepartum Assessment Type: Admission Assessment Vaginal Bleeding: None Maternal Assessment Level of Consciousness: Fully Conscious Headache: Temporal; Generalized Blurred Vision: No Respiratory Effort: Unlabored; Regular Rhythm; Equal Expansion Breath Sounds, Left: Clear and Equal Breath Sounds, Right: Clear and Equal Nausea/Vomiting: Denies RUQ Epigastric Pain: Denies Lower Extremities Edema: Bilateral Lower Extremities Degree: 1+ Upper Extremities Edema: None Degree: None Facial Edema: None Fall Risk Assessment History of Falling: (0) No Secondary Diagnosis: (0) No Ambulatory Aid: (0) Bedrest/Nurse Assist IV Therapy: (20) Yes Gait: (0) Normal/Bedrest/Immobile Mental Status: (0) Oriented to Own Ability Fall Score: 20 Fall Risk Score Definition: No Risk: No action required Labor Evaluation Frequency: none noted at this time Heart Rate FHR Baseline Rate: 145 Variability: Moderate 6-25 bpm Accelerations: 15X15 Decelerations: Variable Category: Category II Pain Assessment Pain Scale: 4 Pain Presence: Intermittent Pain Type: Cramping Pain Location: Abdomen; Back Membrane Status: Intact Datetime: 02/10/2019 16:34 Maternal Assessment Level of Consciousness: Fully Conscious DTR's/Clonus: DTRs 2+ Headache: Denies Blurred Vision: No Nausea/Vomiting: Denies RUQ Epigastric Pain: Denies Facial Edema: None Labor Evaluation Frequency: NONE Pattern: Normal: <= 5 Contractions in 10 Minutes Resting Tone [place]: Relaxed Heart Rate FHR Baseline Rate: 155 Monitor Mode: External US FHR Baseline Changes: No Baseline Change Variability: Moderate 6-25 bpm Accelerations: 10X10 Decelerations: None Category: Category I Pain Assessment Pain Scale: 8 Pain Presence: Constant Pain Type: Ache Pain Location: Other Pain Goal: 3 Membrane Status: Intact Datetime: 02/10/2019 15:55 Maternal Assessment Level of Consciousness: Fully Conscious DTR's/Clonus: DTRs 2+ Headache: Denies Blurred Vision: No Nausea/Vomiting: Denies RUQ Epigastric Pain: Denies Facial Edema: None Labor Evaluation Frequency: NONE Pattern: Normal: <= 5 Contractions in 10 Minutes Resting Tone [place]: Relaxed Heart Rate FHR Baseline Rate: 155 Monitor Mode: External US FHR Baseline Changes: No Baseline Change Variability: Moderate 6-25 bpm Accelerations: 15X15 Decelerations: None Category: Category I Pain Assessment Pain Scale: 8 Pain Presence: Constant Pain Type: Ache Pain Location: Other Pain Goal: 4 Pain Assessment Comments: GENERALIZED BODY ACHES Membrane Status: Intact Datetime: 02/10/2019 15:41 EGA: 33.0 Datetime: 02/10/2019 15:40 Fall Score: 0 Fall Risk Score Definition: No Risk: No action required Datetime: 02/01/2019 18:45 Fall Score: 0 Fall Risk Score Definition: No Risk: No action required Datetime: 02/01/2019 18:32 EGA: 31.5
== END 2019-02-27 23:06 | disposition home or self-care (01) ==
LOC: OBT 16:51 → L-D 16:52 → OBT 23:06
PROVIDERS: ATTEND Obstetrics & Gynecology
DX: O62.9 Abnormality of forces of labor, unspecified (principal); Z3A.35 35 weeks gestation of pregnancy
CPT/HCPCS: 36415; 76818; 81001; 84112; 87086; 96360; 96361; 96372; J3105; J7120; Z7500; G0463

== ENCOUNTER 2019-03-10 13:04 | Outpatient (CLI) | payer OTHER ==
[~2019-03-10] VITALS: Ht 160 cm; Wt 93.0 kg
[2019-03-10 13:24] VITALS: Ht 160 cm; Wt 93.0 kg
[2019-03-10 13:25] VITALS: BP 121/69; PULSE 96; RESP 18
[2019-03-10] MEDS ORDERED: ACETAMINOPHEN 500 MG TAB PO STA (13:57)
--- NOTE | 2019-03-10 18:11 | TRIAGE ---
OB Triage Datetime Report Generated by CPN: 03/10/2019 18:11 Datetime: 03/10/2019 17:50 Maternal Assessment Level of Consciousness: Fully Conscious DTR's/Clonus: DTRs 2+ Headache: Denies Blurred Vision: No Nausea/Vomiting: Denies RUQ Epigastric Pain: Denies Facial Edema: None Labor Evaluation Frequency: IRREG Monitor Mode: External Duration (sec)2399: 60-80 Quality: Mild Pattern: Normal: <= 5 Contractions in 10 Minutes Resting Tone [place]: Relaxed Heart Rate FHR Baseline Rate: 140 Monitor Mode: External US FHR Baseline Changes: No Baseline Change Variability: Moderate 6-25 bpm Accelerations: 15X15 Decelerations: None Category: Category I Pain Assessment Pain Scale: 0 Pain Presence: Intermittent Pain Type: Cramping Pain Location: Abdomen Pain Goal: 0 Membrane Status: Intact Datetime: 03/10/2019 15:54 Maternal Assessment Level of Consciousness: Fully Conscious DTR's/Clonus: DTRs 2+ Headache: Denies Blurred Vision: No Nausea/Vomiting: Denies RUQ Epigastric Pain: Denies Facial Edema: None Labor Evaluation Frequency: 10 Monitor Mode: External Duration (sec)2399: 60-70 Quality: Mild Pattern: Normal: <= 5 Contractions in 10 Minutes Resting Tone [place]: Relaxed Heart Rate FHR Baseline Rate: 130 Monitor Mode: External US FHR Baseline Changes: No Baseline Change Variability: Moderate 6-25 bpm Accelerations: 15X15 Decelerations: None Category: Category I Pain Assessment Pain Scale: 4 Pain Presence: Intermittent Pain Type: Contraction Pain Location: Abdomen Pain Goal: 2 Membrane Status: Intact Datetime: 03/10/2019 13:41 Maternal Assessment Level of Consciousness: Fully Conscious DTR's/Clonus: DTRs 2+ Headache: Denies Blurred Vision: No RUQ Epigastric Pain: Denies Facial Edema: None Labor Evaluation Frequency: occas Monitor Mode: External Duration (sec)2399: 60 Quality: Mild Pattern: Normal: <= 5 Contractions in 10 Minutes Resting Tone [place]: Relaxed Heart Rate FHR Baseline Rate: 130 Monitor Mode: External US FHR Baseline Changes: No Baseline Change Variability: Moderate 6-25 bpm Accelerations: 15X15 Decelerations: None Category: Category I Pain Assessment Pain Scale: 8 Pain Presence: Constant Pain Type: Pressure Pain Location: Abdomen Vaginal Exam Dilatation (cms): 0.5 Station: -3 Exam By: jamar lagos Vaginal Bleeding: None Cervix, Consistency: Soft Cervix, Position: Posterior Datetime: 03/10/2019 13:30 Maternal Assessment Level of Consciousness: Fully Conscious DTR's/Clonus: DTRs 2+; No Clonus Headache: Denies Blurred Vision: No Respiratory Effort: Unlabored; Regular Rhythm; Equal Expansion Breath Sounds, Left: Clear and Equal Breath Sounds, Right: Clear and Equal Nausea/Vomiting: Denies RUQ Epigastric Pain: Denies Facial Edema: None Fall Risk Assessment History of Falling: (0) No Secondary Diagnosis: (0) No Ambulatory Aid: (0) Bedrest/Nurse Assist Gait: (0) Normal/Bedrest/Immobile Mental Status: (0) Oriented to Own Ability Datetime: 03/10/2019 13:09 Time of Arrival: 03/10/2019 13:00 EGA: 37.0 Arrived By: Ambulatory Arrived From: Home Chief Complaint: CRAMPING AND LOWER ABD PRESSURE X 1 WEEK Movement: Present Rupture of Membranes: Denies Vaginal Bleeding: None Vaginal Discharge: Denies Recent Sexual Intercouse: Denies Abdominal Trauma: Not Applicable Provider Notified: dr cummings Initial Plan: EFM,CALL DR العراقي Datetime: 03/10/2019 13:08 Maternal Assessment Level of Consciousness: Fully Conscious DTR's/Clonus: DTRs 2+; No Clonus Headache: Denies Blurred Vision: No Respiratory Effort: Unlabored; Regular Rhythm; Equal Expansion Breath Sounds, Left: Clear and Equal Breath Sounds, Right: Clear and Equal Nausea/Vomiting: Denies RUQ Epigastric Pain: Denies Facial Edema: None Temperature Route: Axillary Fall Risk Assessment History of Falling: (0) No Secondary Diagnosis: (0) No Ambulatory Aid: (0) Bedrest/Nurse Assist IV Therapy: (0) No Gait: (0) Normal/Bedrest/Immobile Mental Status: (0) Oriented to Own Ability Fall Score: 0 Fall Risk Score Definition: No Risk: No action required Datetime: 02/27/2019 17:41 Fall Score: 0 Fall Risk Score Definition: No Risk: No action required Datetime: 02/27/2019 17:40 EGA: 35.3 Datetime: 02/12/2019 07:12 Fall Score: 20 Fall Risk Score Definition: No Risk: No action required Datetime: 02/11/2019 19:25 Fall Score: 0 Fall Risk Score Definition: No Risk: No action required Datetime: 02/11/2019 07:22 Fall Score: 20 Fall Risk Score Definition: No Risk: No action required Datetime: 02/10/2019 19:30 Fall Score: 20 Fall Risk Score Definition: No Risk: No action required Datetime: 02/10/2019 18:34 Fall Score: 20 Fall Risk Score Definition: No Risk: No action required Datetime: 02/10/2019 15:41 EGA: 33.0 Datetime: 02/10/2019 15:40 Fall Score: 0 Fall Risk Score Definition: No Risk: No action required Datetime: 02/01/2019 18:45 Fall Score: 0 Fall Risk Score Definition: No Risk: No action required Datetime: 02/01/2019 18:32 EGA: 31.5
--- NOTE | 2019-03-10 18:11 | PN ---
Triage Information Date/Time March 10, 2019 Reason for visit: Abd/pelvic pain Weeks of Gestation 37 w /Para 3/2 Diabetes: none Hypertention: none Additional information Pt reports that for the last week she has had lower abdominal pain 4 to 5 times a day that lasts for 10 minutes at a time. No bleeding of leaking. ++FM. POBHx: Stillbirth at 28 weeks. @ 34 weeks (was 4 cm on an exam and was then given Pitocin and delivered 24 hours later). PMHx: none. PSHx: none. NKDA. Objective Vital Signs Date Temp Pulse Resp B/P (MAP) Pulse Ox O2 O2 Flow FiO2 Time Delivery Rate 03/10/19 97.9 96 18 121/69 Room Air 13:25 (86) Heart Rate: 130's (Accels to 170 BPM. No decels.) Contractions: < 5 Minutes Apart (5 minutes apart) Exam Thick/FT/posterior and no coverage specialist 4 hours. Disposition: Discharge Assessment/Plan A: IUP at 37 weeks. False labor. P: Pt was given p.o. Tylenol, p.o. hydration and she rested and her cervix did not coverage specialist the 4 hours that she was here and the abdominal pain she come in for had resolved. Pt was d/c'ed home and felt very comfortable going home. She is not feeling the contractions she is having. Labor precautions reviewed. YAMILKA MARIE MD Mar 10, 2019 18:11
== END 2019-03-10 18:22 | disposition home or self-care (01) ==
LOC: OBT 13:04 → L-D 13:04 → OBT 18:22
PROVIDERS: ATTEND Obstetrics & Gynecology
DX: O46.8X3 Other antepartum hemorrhage, third trimester (principal); Z3A.37 37 weeks gestation of pregnancy
CPT/HCPCS: 76818; Z7500; Z7610; G0463

== ENCOUNTER 2019-03-19 11:51 | Inpatient (IN) | payer MEDICAID, OTHER ==
[~2019-03-19] VITALS: Ht 160 cm; Wt 93.3 kg
[2019-03-19 12:16] VITALS: BP 112/72; PULSE 88; Ht 160 cm; Wt 93.3 kg
[2019-03-19] MEDS ORDERED: METHYLERGONOVINE 0.2 MG INJ IM PRN (14:30)
[2019-03-19] MEDS ORDERED: OXYTOCIN 30 UNITS/LR 500 ML IV PRN (14:30)
[2019-03-19] MEDS ORDERED: CARBOPROST 250 MCG INJ IM PRN (14:30)
[2019-03-19] MEDS ORDERED: BUTORPHANOL 2 MG INJ IV PRN ×2 (14:30)
[2019-03-19] MEDS ORDERED: LIDOCAINE 1% (MPF) 30 ML INJ INJ PRN (14:30)
[2019-03-19] MEDS ORDERED: OXYTOCIN 30 UNITS/LR 500 ML IV SCH (14:30)
[2019-03-19] MEDS ORDERED: MISOPROSTOL 200 MCG TAB PR PRN (14:30)
[2019-03-19] MEDS: LACTATED RINGER'S 1,000 ML IV SCH ×2 (15:13→18:48)
[2019-03-20] MEDS ORDERED: OXYTOCIN 30 UNITS/LR 500 ML IV SCH ×2 (07:00→13:15)
[2019-03-20] MEDS: OXYTOCIN 30 UNITS/LR 500 ML IV SCH ×3 (08:44→10:44)
[2019-03-20] MEDS: LACTATED RINGER'S 1,000 ML IV SCH (08:45)
--- NOTE | 2019-03-20 09:19 | HP ---
Date/Time of Note Date/Time of Note DATE: 03/20/19 TIME: 09:18 OB - History Hx of Present Free Text/Dictation at 38 weeks with uterine ctxs Care: Good Care Ultrasounds: Normal mid trimester US Obstetrical Complications: None Medical Complications: None Past Family/Social History * Past Medical, Surgical, Family and Obstetric Histories reviewed from chart. OB Admission Exam Vital Signs Vital Signs Vital Signs Date Temp Pulse Resp B/P (MAP) Pulse Ox O2 O2 Flow FiO2 Time Delivery Rate 03/19/19 98.2 88 112/72 12:16 (85) Physical Exam HEENT: WNL Heart: Rhythm Normal Lungs: Clear, Equal Abdomen: WNL Extremities: Normal Reflexes: Normal Last 72 hours Lab Results CBC & BMP 03/19/19 15:10 OB Assessment/Plan Reason for admission: active labor Plan: Expectant Management MARTITA العراقي MD March 20, 2019 09:19
--- NOTE | 2019-03-20 09:58 | PREAC ---
Date/Time of Note Date/Time of Note DATE: 03/20/19 TIME: 09:57 Anesthesia Eval and Record Evaluation Time Pre-Procedure Interview DATE: 03/20/19 TIME: 09:57 Age 28 Sex female NPO: 8 hrs Preoperative diagnosis iup at 38 weeks Planned procedure labor epidural Past Medical History Past Medical History: Includes GI: Obesity Heme: Anemia Surgery & Anesthesia Issues No known issue Meds Anticoagulation: No Beta Delvis within 24 hr: No Reason Beta Delvis not given: Pt. not on B-Delvis Reported Medications Multivit/Min/Fol Ac/Iron/Pren* ( S*) 1 Tab Tab, 1 TAB PO DAILY, TAB 10/22/15 Current Medications Lactated Ringer's 1,000 ml @ 125 mls/hr Q8H IV Last administered on 03/20/19at 08:45; Admin Dose 125 MLS/HR; Start 03/19/19 at 14:09 Butorphanol Tartrate (Stadol) 1 mg Q2H PRN IV .PAIN SCALE 1-5 Last administered on 03/20/19at 09:33; Admin Dose 1 MG; Start 03/19/19 at 14:30 Butorphanol Tartrate (Stadol) 2 mg Q2H PRN IV .PAIN SCALE 6-10; Start 03/19/19 at 14:30 Lidocaine (Xylocaine 1% (Mpf)) 30 ml ONCE PRN INJ .EPISIOTOMY; Start 03/19/19 at 14:30 Oxytocin/Lactated Ringer's 500 ml @ 500 mls/hr ONCE POST IV Last administered on 03/20/19at 08:44; Admin Dose 500 MLS/HR; Start 03/19/19 at 14:30 Oxytocin/Lactated Ringer's 500 ml @ 125 mls/hr POST IV ; Start 03/19/19 a t 14:30 Oxytocin/Lactated Ringer's 500 ml @ 0 mls/hr ONCE PRN IV .VAGINAL BLEEDING; Start 03/19/19 at 14:30 Methylergonovine Maleate (Methergine) 0.2 mg ONCE PRN IM .VAGINAL BLEEDING; Start 03/19/19 at 14:30 Carboprost Tromethamine (Hemabate) 250 mcg ONCE PRN IM .VAGINAL BLEEDING; Start 03/19/19 at 14:30 Misoprostol (Cytotec) 1,000 mcg ONCE PRN ID .VAGINAL BLEEDING; Start 03/19/19 at 14:30 Oxytocin/Lactated Ringer's 500 ml @ 0 mls/hr FOR INDUCTION IV ; Start 03/20/19 at 07:00 Meds reviewed: Yes Allergies Coded Allergies: No Known Allergy (Unverified , 10/22/15) Allergies Reviewed: Yes Labs/Studies Labs Reviewed: Reviewed by anesthesiologist Result Diagram: 03/19/19 1510 Laboratory Tests 03/19/19 15:10 Blood Bank Test 03/19/19 15:10 Antibody Screen NEGATIVE Blood Type O POSITIVE Rh Immune Globulin Candidate NO test: Positive Pre-procedure Exam Last vitals Vital Signs Date Temp Pulse Resp B/P (MAP) Pulse Ox O2 O2 Flow FiO2 Time Delivery Rate 03/19/19 98.2 88 112/72 12:16 (85) Airway: Adequate mouth opening, Adequate thyromental dist Mallampati: Mallampati II Teeth: Normal Lung: Normal Heart: Normal ASA Physical Status ASA physical status: 2 Emergency: None Planned Anesthetic Neuraxial: Epidural Planned Pain Management Parenteral pain med Pre-operative Attestations Prior to commencing anesthesia and surgery, the patient was re-evaluated, there was verification of: *The patient's identity *The results of appropriate recent lab work and preoperative vital signs *The above evaluation not changing prior to induction *Anesthetic plan, risk benefits, alternative and complications discussed with patient/family; questions answered; patient/family understands, accepts and wishes to proceed. ZAID BSOCH March 20, 2019 09:58
--- NOTE | 2019-03-20 10:29 | LDN ---
Date/Time of Note Date/Time of Note DATE: 03/20/19 TIME: 10:29 Delivery Summary Placenta Delivered: Spontaneously Meconium: none Episiotomy: No Perineal laceration: 1 Anesthesia type: Local Estimated blood loss: 300 Sponge & Needle done & correct: Yes All needle counts correct: Yes Any foreign bodies felt in the: No MARTITA العراقي MD March 20, 2019 10:29
[2019-03-20] MEDS ORDERED: FENTAnyl 2MCG/ML-ROPIV 0.2% 0 ML ONE (10:33)
[2019-03-20] MEDS ORDERED: DIPHENHYDRAMINE 50 MG INJ IV PRN (11:00)
[2019-03-20] MEDS ORDERED: ONDANSETRON 4 MG INJ IV PRN (11:00)
[2019-03-20] MEDS ORDERED: NALOXONE (0.4 MG/ML) INJ IV PRN (11:00)
[2019-03-20] MEDS ORDERED: FENTAnyl 2MCG/ML-ROPIV 0.2% 100 ML BAG EPI SCH (11:00)
[2019-03-20 12:45] VITALS: BP 116/58; PULSE 69; RESP 18
[2019-03-20] MEDS: LACTATED RINGER'S 1,000 ML IV* SCH ×2 (13:15→21:15)
[2019-03-20] MEDS ORDERED: OXYTOCIN 30 UNITS/LR 500 ML IV PRN (13:30)
[2019-03-20] MEDS ORDERED: WITCH HAZEL/GLYCERIN PAD PR PRN (13:30)
[2019-03-20] MEDS ORDERED: ACETAMINOPHEN 325 MG TAB PO PRN (13:30)
[2019-03-20] MEDS ORDERED: MISOPROSTOL 200 MCG TAB PR PRN (13:30)
[2019-03-20] MEDS ORDERED: DIPHENHYDRAMINE 25 MG CAP PO PRN (13:30)
[2019-03-20] MEDS ORDERED: METHYLERGONOVINE 0.2 MG INJ IM PRN (13:30)
[2019-03-20] MEDS ORDERED: CARBOPROST 250 MCG INJ IM PRN (13:30)
[2019-03-20] MEDS ORDERED: ZOLPIDEM 5 MG TAB PO PRN (13:30)
[2019-03-20] MEDS ORDERED: SENNA/DOCUSATE NA (8.6MG/50MG) TAB PO PRN (13:30)
[2019-03-20] MEDS ORDERED: MAGNESIUM HYDROXIDE 30ML CUP PO PRN (13:30)
[2019-03-20] MEDS ORDERED: BENZOCAINE 20% 56 ML SPRAY TOP PRN (13:30)
[2019-03-20] MEDS: IBUPROFEN 800 MG TAB PO SCH ×3 (13:30→23:55)
[2019-03-20] MEDS ORDERED: LANOLIN HPA 1 PKT TOP PRN (13:30)
[2019-03-20 16:00] VITALS: BP 118/59; PULSE 81; RESP 16
[2019-03-20] MEDS: HYDROCODONE/APAP (5/325) TAB PO PRN (16:43)
[2019-03-20 19:40] VITALS: BP 110/52; PULSE 82; RESP 18
[2019-03-21] VITALS: BP 98/52; RESP 18
[2019-03-21] MEDS: HYDROCODONE/APAP (5/325) TAB PO PRN (03:07)
[2019-03-21 04:15] VITALS: BP 96/52; PULSE 80; RESP 18
[2019-03-21] MEDS: LACTATED RINGER'S 1,000 ML IV* SCH ×2 (05:15→13:15)
[2019-03-21] MEDS: IBUPROFEN 800 MG TAB PO SCH ×4 (05:50→23:24)
[2019-03-21 08:00] VITALS: BP 110/66; PULSE 76; RESP 20
[2019-03-21 16:00] VITALS: BP 103/65; PULSE 78; RESP 16
[2019-03-21 16:15] VITALS: BP 103/65; PULSE 78; RESP 16
[2019-03-21 19:45] VITALS: BP 101/66; PULSE 76; RESP 18
[2019-03-22 03:42] VITALS: BP 114/68; PULSE 71; RESP 17
[2019-03-22] MEDS: IBUPROFEN 800 MG TAB PO SCH ×2 (05:37→12:24)
[2019-03-22 07:45] VITALS: BP 96/66; PULSE 78; RESP 18
[2019-03-22] MEDS ORDERED: MEASLES,MUMPS,RUBELLA VACCINE INJ SC* ONE (09:00)
[2019-03-22] MEDS ORDERED: VARICELLA VACCINE LIVE/PF 1,350 UNIT/0.5 ML ML SC* ONE (09:00)
[2019-03-22] MEDS ORDERED: DIPHTH/TET/ACEL PERTUSS (ADULT) 0.5 ML VIAL IM* ONE (09:00)
[2019-03-22] MEDS: HYDROCODONE/APAP (5/325) TAB PO PRN (09:17)
--- NOTE | 2019-03-22 11:21 | DS ---
Date/Time of Note Date/Time of Note DATE: 03/22/19 TIME: 11:21 Discharge Summary Admission/Discharge Info Admit Date/Time March 19, 2019 at 14:16 Discharge Date/Time Discharge Diagnosis term Patient Condition: Stable Hospital Course unremarkable Home Meds Reported Medications Multivit/Min/Fol Ac/Iron/Pren* ( S*) 1 Tab Tab, 1 TAB PO DAILY, TAB 10/22/15 Primary Care Provider Care Physician No Primary MARTITA العراقي MD March 22, 2019 11:21
--- NOTE | 2019-03-23 14:56 | DELSUM ---
Delivery Summary A-C Datetime Report Generated by CPN: 03/23/2019 14:56 DELIVERY PERSONNEL Hand Silvering Supervisor: Saira, Amira MATERNAL INFORMATION Delivery Anesthesia: None Medications in Delivery: oxytocin Delivery QBL (ml): 250 Placenta Cultured: No Maternal Complications: None LABOR SUMMARY EDC: 03/31/2019 00:00 No. Babies in Womb: 1 Attempted: No Labor Anesthesia: None LABOR INFORMATION Reason for Induction: Not Applicable Complete Dilatation: 03/20/2019 10:17 Oxytocin: Augmentation Group B Beta Strep: Negative Antibiotics # of Doses: NONE Steroids Given: None Reason Steroids Not Administered: Not Applicable MEMBRANES Membranes Rupture Method: Artificial Rupture of Membranes: 03/20/2019 09:26 Length of Rupture (hr): 0.88 Amniotic Fluid Color: Clear Amniotic Fluid Amount: Large Amniotic Fluid Odor: None STAGES OF LABOR Stage 2 hr: 0 Stage 2 min: 2 Stage 3 hr: 0 Stage 3 min: 15 VAGINAL DELIVERY Laceration Type: Perineal Laceration Repair: Yes Initial Vag Sponge Count: 10 Final Vag Sponge Count: 10 Initial Vag Sharps Count: 3 Final Vag Sharps Count: 3 Sponge Count Correct: Yes; Vaginal Sweep Performed Sharps Count Correct: Yes BABY A INFORMATION Infant Delivery Date/Time: 03/20/2019 10:19 Method of Delivery: Vaginal Born in Route : No : N/A Forceps: N/A Vacuum Extraction: N/A Shoulder Dystocia : N/A SHOULDER DYSTOCIA BABY A Infant Delivery Date/Time: 03/20/2019 10:19 PRESENTATION/POSITION BABY A Presentation: Unable to Assess Cephalic Presentation: Vertex Vertex Position: Left Occipital Anterior Breech Presentation: N/A PLACENTA INFORMATION BABY A Placenta Delivery Time : 03/20/2019 10:34 Placenta Method of Delivery: Spontaneous Placenta Status: Delivered SCORES BABY A Heart Rate 1 min: >100 bpm Resp Effort 1 min: Good Cry Reflex Irritability 1 min: Cough/Sneeze/Pulls Away Muscle Tone 1 min: Active Motion Color 1 min: Body [place], Extremit Blue Resuscitation Effort 1 min: Tactile Stimulation SCORE 1 MIN: 9 Heart Rate 5 min: >100 bpm Resp Effort 5 min: Good Cry Reflex Irritability 5 min: Cough/Sneeze/Pulls Away Muscle Tone 5 min: Active Motion Color 5 min: Body [place], Extremit Blue Resuscitation Effort 5 min: Tactile Stimulation SCORE 5 MIN: 9 INFORMATION BABY A Gestational Age at Delivery: 38.3 Gestational Status: Early Term- 37- 38.6 Weeks Infant Outcome : Liveborn Condition : Stable Infant Sex: Male IDENTIFICATION/MEDS BABY A ID Band Number: [id number] ID Band Location: Right Leg; Left Arm Sensor Applied: Yes Sensor Number: [id number] Sensor Location : Cord Clamp Vitamin K Given : Not Given Erythromycin Given: Not Given WEIGHT/LENGTH BABY A Infant Birthweight (gm): 3025 Weight (lb): 6 Infant Weight (oz): 11 Infant Length (in): 19.50 Infant Length (cm): 49.53 CORD INFORMATION BABY A No. Cord Vessels: 3 Nuchal Cord : N/A Cord Blood Taken: Yes Suction: Mouth; Nose ASSESSMENT BABY A Complications: None Physical Findings at Delivery: Within Normal Limits Respirations: Appears Normal Patient Care Coordinator/ALS Called : No Care By: VINOD CHANEY RN Transferred To: Remains with Mother
== END 2019-03-22 14:56 | disposition home or self-care (01) | DRG 807 ==
LOC: L-D 11:51 → OBT 11:51 → L-D 14:16 → PP1 03-20 12:44
PROVIDERS: ADMIT Obstetrics & Gynecology; ATTEND Obstetrics & Gynecology
PROC: 10E0XZZ Delivery of Products of Conception, External Approach (ICD-10-PCS; principal; 2019-03-20)
DX: O80 Encounter for full-term uncomplicated delivery (principal); Z37.0 Single live birth; Z3A.38 38 weeks gestation of pregnancy
CPT/HCPCS: 76815; 76818; 85025; 85610; 85730; 86592; 86703; 86762; 86850; 86900; 86901; 87340; 90715; 90716; 99464; G0463; J0595; J2590; J3010; J7120